=== PATIENT | female | born 1965 ===

== ENCOUNTER 2018-11-01 13:53 | Outpatient (CLI) | payer OTHER ==
--- NOTE | 2018-11-01 18:06 | MRI ---
MRI OF THE BILATERAL BREASTS WITHOUT AND WITH CONTRAST: 11/01/18 COMPARISON: Mammogram and ultrasound 10/18/18. HISTORY: Patient had a history of being BRCA positive. Patient had bilateral mastectomies and implant reconstr uction. The patient was referred for MRI because of asymmetries in the left breast on mammogram that were not seen on ultrasound. These were at the 3 o'clock and 9 o'clock positions. TECHNIQUE: Multiplanar and multisequence MRI images were obtained in the bilateral breasts without and with IV c ontrast. FINDINGS: The patient has had bilateral mastectomies and implant reconstruction with saline breast implants. Th ere appears to be a small amount of residual breast tissuein the left breast at the area of palpable abnormality marked by a vitamin E tablet. Otherwise, predominantly fatty skin flaps overlying the imp lants are seen. No background parenchymal enhancement is seen. In the upper outer aspect of both breasts, there are well circumscribed foci demonstrating enhancemen t and high T2 signal which likely represent axillary lymph nodes slightly extending into the intramam robin soft tissues. The largest is seen on the left measuring 6 mm in size. No suspicious enhancement is seen in either breast. No enlarged axillary lymph nodes are seen. No int ernal mammary lymph nodes are identified. The visualized anterior liver and osseous structures are unremarkable. IMPRESSION: BIRADS 2: Benign Finding(s) Routine annual screening mammography (for women over age 40).
== END 2018-11-01 13:54 | disposition home or self-care (01) ==
LOC: BICMRI 13:53
PROVIDERS: ATTEND Obstetrics & Gynecology
DX: R92.8 Other abnormal and inconclusive findings on diagnostic imaging of breast (principal)
CPT/HCPCS: A9577; C8908